=== PATIENT | female | born 1950 | race Caucasian/White ===

== ENCOUNTER → 2020-01-24 14:49 | Outpatient (BNVA) | payer OTHER, SELFPAY | PROVIDERS: Visit Provider Nurse Practitioner Family | DX: R09.81 Nasal congestion (principal); R53.81 Other malaise; R53.83 Other fatigue; Z20.828 Contact with and (suspected) exposure to other viral communicable diseases | CPT/HCPCS: 87635 ==

== ENCOUNTER 2020-01-29 11:37 | Emergency (ER) | payer OTHER, SELFPAY ==
[2020-01-29 11:46] VITALS: BP 182/109; PULSE 84; RESP 17; TEMP 36.4; O2SAT 98; BMI 34.1
--- NOTE | 2020-01-29 11:55 | ED_ITS ---
HPI - Nausea/Vomiting/Diarrhea General: Chief complaint: Nausea/Vomiting/Diarrhea Stated complaint: COVID+ /NAUSEA Time Seen by Provider: 01/29/20 11:42 Source: patient Mode of arrival: ambulatory Limitations: no limitations History of Present Illness: HPI Narrative: Emani is a very nice 69-year-old female who comes in complaining of nausea, lightheadedness and difficulty sleepi ng. Patient began Friday with symptoms of upper respiratory infection and ultimately presented to her doctor on Friday. She was tested for COVID virus and was notified Friday that she was positive. Patient states that overall she feels okay and denies significant shortness of breath, cough, fever or fatigue. She states that she just has persistent nausea and because of this it is keeping her up so that she cannot sleep and also she is not eating or drinking as much and show she feels as though she could be dehydrated. She denies any syncope or near syncope type symptoms. She states the lightheadedness is mostly when she goes from a seated or laying to a standing position. She knows if she takes her time she will feel okay with standing. She otherwise denies any complaints or concerns. Associated nausea: Yes Associated symtoms: Reports dizziness (Lightheadedness) and nausea; Denies change in vision, chest pain, diaphoresis, dysuria, fatigue, headache(s), malaise, palpitations or syncope Review of Systems Const: Denies: fever(s), chills, body aches, fatigue, malaise or diaphoresis Eyes: Denies: change in vision, blurry vision, photophobia, eye discomfort, eye discharge or eye redness ENMT: Denies: throat pain, odynophagia, hoarseness, swelling of lips/tongue, ear or mastoid pain, ear discharge, change in hearing or nasal discharge Card: Denies: chest pain, palpitations, irregular heart rhythm, edema, lightheadedness, syncope, pre-syncope, dyspnea on exertion or orthopnea Resp: Denies: dyspnea, productive cough, non-productive cough, wheezing, hemoptysis or chest congestion GI: Reports: nausea; Denies: abdominal pain, vomiting, hematemesis, coffee ground emesis, heartburn, diarrhea, constipation, GI cramping, hematochezia or melena : Denies: flank pain, dysuria, urinary frequency, urinary urgency or hematuria Musc: Denies: neck pain, back pain, extremity pain, extremity swelling, joint pain, joint swelling, joint redness, joint warmth or joint stiffness Skin/Breast: Denies: rash, pruritus, erythema or skin tenderness Neuro: Reports: dizziness (Lightheadedness); Denies: headache(s), numbness in extremities, weakness in extremities, sensory changes, lack of coordination, difficulty walking, vertigo, confusion, Slurred speech present or seizure-like activity Cheikh/Lymph: Denies: easy bruising, easy bleeding, petechiae, purpura or enlarged lymph nodes All/Imm: Denies: urticaria, throat swelling, tongue swelling, facial swelling or acute wheezing PFSH ED PFSH: Medical History Asthma Hyperlipidemia Rheumatoid arthritis Physical Exam Const: COMMON NORMALS: no acute distress, patient oriented x3, no limitations, healthy appearing and well nourished GENERAL APPEARANCE: cooperative, well kempt and well developed HENMT: COMMON NORMALS: normocephalic, atraumatic, external ears normal, EAC's normal and Normal external nose present HEAD & SCALP: normal to inspection, normocephalic and atraumatic FACE & SINUS: normal facial exam and face symmetric NOSE: Normal external nose present and Normal nares present EXTERNAL EAR: Yes external ears normal EXTERNAL AUDITORY CANAL: EAC's normal MOUTH: Normal oral and palatal mucosa present, lip normal and tongue normal Eye: COMMON NORMALS: Equal, round and reactive pupils present and conjunctivae normal GENERAL EYE: appearance normal, both eyes and all related structures ALIGNMENT: Yes alignment normal PERIORBITAL: periorbital findings normal EYELID: eyelids normal CONJUNCTIVA: Yes conjunctivae normal SCLERA: sclerae normal PUPIL: Yes Equal, round and reactive pupils present Neck/C-Spine: COMMON NORMALS: full ROM, no lymphadenopathy, supple, no m eningeal signs and no JVD GENERAL: Yes normal visual inspection and Yes trachea midline Chest: COMMONS NORMALS: normal inspection of the chest and normal palpation of entire chest wall Resp: COMMON NORMALS: normal respiratory effort, No retractions, No use of accessory muscles and clear to auscultation bilaterally EFFORT & INSPECTION: Yes able to speak in complete sentences and Yes symmetric chest movement AUSCULTATION: clear to auscultation bilaterally, no crackles, no rales, no rhonchi and no wheezes Cardio: COMMON NORMALS: no JVD, regular rate, regular rhythm, S1 normal heart sound present and S2 normal heart sound present RATE: regular rate RHYTHM: regular rhythm HEART SOUNDS: S1 normal heart sound present, S2 normal heart sound present, no click, no gallops, no murmurs, no rubs and abnormal split S2 GI: COMMON NORMALS: Soft to palpation and No hepatosplenomegaly present PALPATION: Yes Soft to palpation, No Tenderness to palpation present (GI), No Guarding due to palpation present (GI), No Rigid due to palpation, Yes No hepatosplenomegaly present, No Hernia present, No Palpable mass present and No Pulsatile mass present : COMMON NORMALS: Yes no CVA tenderness BLADDER/KIDNEY EXAM: Yes no CVA tenderness EXTERNAL FEMALE EXAM: No Hernia present Back/Pelvis: COMMON NORMALS: no CVA tenderness, thoracic and lumbar spine normal to inspection, no thoracic nor lumbar tenderness and thoraco-lumbar ROM normal Extremity: COMMON NORMALS: normal to inspection, full ROM, capillary refill normal, no joint enlargement, no clubbing, cyanosis or edema and no calf tenderness Neuro: COMMON NORMALS: patient oriented x3, CN's II-XII intact bilaterally, moves all extremities, no focal motor deficits and no sensory deficits noted MENINGEAL SIGNS: Yes no meningeal signs SPEECH: speech normal Psych: COMMON NORMALS: mental status grossly normal, Normal thought process present, cooperative, normal affect, speech normal and activity/motor behavior normal APPEARANCE: Yes well kempt SPEECH: Yes normal speech THOUGHT PROCESS: Normal thought process present Skin: COMMON NORMALS: no rashes or lesions noted, turgor normal, no jaundice, no petechiae and no mottling GENERAL SKIN EXAM: no rashes or lesions noted and turgor normal Course Vital Signs: Vital signs: Vital Signs Temperature 97.6 F 01/29/20 11:46 Pulse Rate 84 01/29/20 11:46 Respiratory Rate 17 01/29/20 11:46 Blood Pressure 182/109 01/29/20 11:46 Pulse Oximetry 98 01/29/20 11:46 MDM - Nausea/Vomiting/Diarrhea MDM Narrative: Medical decision making narrative: Emani is a nice 69-year-old female who comes in complaining of lightheadedness, nausea and difficulty sleeping. Patient is COVID-19 positive per her report. Her vital signs are normal except for mild hypertension and her exam is stable. The patient is declining any lab work, IV fluids or chest x-ray. I believe she is stable for discharge but I will give her Zofran for her nausea as she is requested. She will take this during the day but will try Phenergan at night as needed for sleep. She also wants to try melatonin after I have advised for her to try this. She understands that she is welcome to return should she change her mind and she want work-up performed but at this time she states she feels good she just wants something for her symptoms and would like to be discharged. Patient does take a quarter of a milligram of prednisone daily, 0.25 mg. I did review this with internal medicine and they state that the patient can stop this without having to taper. The patient states that she has taken herself off of this before turkey and never had any symptoms. She takes this for her RA and been told by her bread packer in the past that is insignificant but it makes her feel better she can take it. Patient states that she can go up to 2 weeks at a time without taking it but then she starts to have pain in her joints from her RA. I have advised her to stop this until she has completely recovered from this covert infection and she states she will do so. Discharge Plan Discharge Patient Disposition: Home Clinical Impression: Nausea, COVID-19 virus infection Condition: Stable Prescriptions: New Zofran 4 mg tablet 4 mg PO Q6H PRN (Reason: nausea and vomiting) Qty: 20 RF: 0 promethazine 25 mg tablet 25 mg PO Q4H PRN (Reason: nausea and vomiting) Qty: 20 RF: 0 Discharge Orders: Discharge Order (Routine); Ordered 01/29/20 Ordered By: Essie Almaguer Referrals: Magdy Cruz MD [Physician] - 1-3 days Discharge Diet: Advance as tolerated Discharge Activity: Resume usual activity Patient Instructions: Acute Nausea and Vomiting (ED), Viral Syndrome (ED) Activity Restrictions/Additional Instructions: Please return to the ER immediately for any of the signs or symptoms listed on your discharge instruction sheets, worsening/changing of your symptoms, you are not getting better as quickly as expected, or for ANY other cause or concerns. Take the Zofran during the day as needed for nausea and vomiting. If you are nauseated at night take the Phenergan 1 tablet and if necessary a second tablet. You may also take melatonin at night to help you sleep. Stop your prednisone until your symptoms have resolved and discussed with your primary doctor or your bread packer restarting this. Return to the ER for shortness of breath, increased weakness, vomiting, or for any other cause for concern. Coding Level of Care Code ED On Site Services Specialist for Adriana Nguyễn
[2020-01-29] MEDS: ondansetron 4 MG Tablet PO (12:32)
== END 2020-01-29 12:38 | disposition home or self-care (01) ==
PROVIDERS: Emergency Provider Emergency Medicine
DX: U07.1 COVID-19 (principal); R11.0 Nausea; E78.5 Hyperlipidemia, unspecified
CPT/HCPCS: 12345; 99281; 99283; Q0162

== ENCOUNTER 2021-01-06 00:33 | Emergency (ER) | payer MEDICARE, SELFPAY ==
--- NOTE | 2021-01-06 01:09 | XRR_ITS ---
PROCEDURE INFORMATION: Exam: XR Chest Exam date and time: 01/06/2021 1:09 AM Age: 70 years old Clinical indication: Shortness of breath; Patient HX: SOB. History of asthma. TECHNIQUE: Imaging protocol: XR of the chest. Views: 1 view. Total images: 1 COMPARISON: No relevant prior studies available. FINDINGS: Lungs: Trace atelectasis or scar noted in the right lung base. Pleural spaces: Unremarkable. No pleural effusion. No pneumothorax. Heart/Mediastinum: Low lung volumes are present, accentuating cardiac size and pulmonary markings. Vasculature: Atherosclerosis is evident. Bones/joints: Unremarkable. XR/XR chest 1V portable [id number] IMPRESSION: 1. Low lung volumes are present, accentuating cardiac size and pulmonary markings. 2. Trace atelectasis or scar noted in the right lung base.
--- NOTE | 2021-01-06 01:09 | ECG_ITS ---
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: : 1950 Requested By: Fahad Ruano Order Number: [id number] Reading MD: IRVING FLEMING Measurements Intervals [place] Rate: 62 P: 29 NM: 167 QRS: 21 QRSD: 90 T: 23 QT: 399 QTc: 407 Interpretive Statements SINUS RHYTHM MINIMAL VOLTAGE CRITERIA FOR LVH, CONSIDER NORMAL VARIANT [MEETS CRITERIA IN ONE OF: R(aVL), S(V1), R(V5), R(V5/V6)+S(V1)] WARNING: DATA QUALITY MAY AFFECT INTERPRETATION No previous ECG available for comparison Electronically Signed On 01-06-2021 20:28:25 CDT by IRVING FLEMING [id number]
[2021-01-06 01:31] VITALS: BP 203/97; PULSE 78; RESP 18; TEMP 36.8; O2SAT 99; BMI 33.1
[2021-01-06 05:12] LABS: Basophils % 0.5 %; Eosinophils # 0.1 10^3/uL (0.0-0.8); Eosinophils % 2.3 %; Hematocrit 40.1 % (37.0-47.0); Hemoglobin 12.8 g/dL (11.5-15.3); Lymphocytes # 1.2 10^3/uL (0.8-4.8); Lymphocytes % 20.9 %; Mean Corpuscular HGB Conc 31.9 g/dL (30.0-36.0); Mean Corpuscular Hemoglobin 30.5 pg (28.0-34.0); Mean Corpuscular Volume 95.7 fL (81-99); Mean Platelet Volume 10.2 fL (7.4-10.4); Monocytes # 0.8 10^3/uL (0.2-0.9); Monocytes % 14.9 %; Neutrophils # 3.44 10^3/uL (1.8-7.7); Nucleated Red Blood Cells % 0 %; Platelet Count 266 10^3/cmm (130-400); Red Blood Count 4.19 10^6/uL (4.1-5.3); Red Cell Distribution Width 12.8 % (12.1-15.1); White Blood Count 5.6 10^3/uL (4.0-10.0)
[2021-01-06 05:32] LABS: Troponin(5th) Baseline 14 ng/L (0-10)
[2021-01-06 05:35] VITALS: BP 160/94; PULSE 61; O2SAT 96
[2021-01-06 05:41] LABS: Alanine Aminotransferase 17 U/L (0-33); Albumin Level 4.2 g/dL (3.5-5.2); Alkaline Phosphatase 47 IU/L (35-105); Anion Gap 13.1 (5-19); Aspartate Amino Transferase 18 U/L (0-32); Blood Urea Nitrogen 15 mg/dL (8-23); Calcium 9.2 mg/dL (8.5-10.5); Carbon Dioxide 29 mmol/L (22-29); Chloride 102 mmol/L (98-107); Globulin 2.1 g/dL (1.3-4.6); Glomerular Filtration Rate 122.3 mL/min (90-130); Glucose 76 mg/dL (65-115); NT Pro B Type Natriuretic Pept 62 pg/mL (0-125); Osmolality Calculated 290 mOsm/kg (285-295); Potassium 4.1 mmol/L (3.5-5.1); Sodium 140 mmol/L (136-145); Total Bilirubin 0.4 mg/dL (0.15-1.2); Total Protein 6.3 g/dL (6.6-8.7)
--- NOTE | 2021-01-06 05:50 | ED_ITS ---
HPI - General Adult General: Chief complaint: General Medical Stated complaint: sob/has asthma Time Seen by Provider: 01/06/21 05:48 History of Present Illness: HPI narrative: 70-year-old female presents emergency room complaining of reflux with a history of asthma. She states she has not been having improvement with her usual rescue medications. She did test positive for Covid in January 2020. This is evidently been going on for some weeks and seems to be worsening. She has tried several different medications although really she continues to take Prilosec daily for her heartburn. Onset (ago): day(s) Severity: moderate Relieving factors: none Exacerbating factors: none Associated symptoms: Deny chest pain, confusion, cough, diaphoresis, decreased appetite, dyspnea, fevers/chills, headache(s), malaise, nausea, rash, palpitations, seizures, short of breath, syncope, vomiting or weakness Treatments prior to arrival: other (Inhaled beta agonists) Review of Systems Const: Denies: malaise or diaphoresis ENMT: Reports: throat pain; Denies: ear or mastoid pain, nasal discharge or nasal congestion Card: Denies: chest pain, palpitations or syncope Resp: Denies: dyspnea GI: Reports: heartburn; Denies: nausea or vomiting : Denies: flank pain, difficulty voiding, dysuria, urinary frequency or urinary urgency Skin/Breast: Denies: rash Neuro: Denies: headache(s) or confusion PFS ED PFSH: Medical History (Updated 01/07/21 @ 18:15 by Holden Barker DO) Asthma Hyperlipidemia Rheumatoid arthritis Physical Exam Const: COMMON NORMALS: no acute distress GENERAL APPEARANCE: cooperative and comfortable ORIENTATION/CONSCIOUSNESS: Yes awake, Yes oriented to person, Yes oriented to place and Yes oriented to time HENMT: COMMON NORMALS: normocephalic, atraumatic and hearing grossly normal bilaterally HEAD & SCALP: normocephalic and atraumatic Neck/C-Spine: COMMON NORMALS: no JVD Resp: COMMON NORMALS: normal respiratory effort, No retractions, No use of accessory muscles and clear to auscultation bilaterally AUSCULTATION: clear to auscultation bilaterally Cardio: COMMON NORMALS: no JVD, regular rate, regular rhythm and No murmurs present (Cardio) RATE: regular rate RHYTHM: regular rhythm GI: COMMON NORMALS: Soft to palpation and No hepatosplenomegaly present AUSCULTATION: Yes normoactive bowel sounds PALPATION: Yes Soft to palpation, No Tenderness to palpation present (GI), No Guarding due to palpation present (GI) and Yes No hepatosplenomegaly present Extremity: COMMON NORMALS: normal to inspection, capillary refill normal, no clubbing, cyanosis or edema, no calf tenderness and no pedal edema Neuro: SENSORIUM/ORIENTATION: Yes oriented to person, Yes oriented to place and Yes oriented to time Skin: COMMON NORMALS: no rashes or lesions noted GENERAL SKIN EXAM: no rashes or lesions noted Course Vital Signs: Vital signs: Vital Signs Temperature 98.2 F 01/06/21 01:31 Pulse Rate 98 01/06/21 10:37 Respiratory Rate 18 01/06/21 10:37 Blood Pressure 189/98 01/06/21 10:37 Pulse Oximetry 99 01/06/21 10:37 MDM - General Adult MDM Narrative: Medical decision making narrative: Reviewed labs with the patient discharged home increase omeprazole to 40 twice daily add Carafate as needed also set her up for a Lexiscan sestamibi stress test. Recommend follow- up with her PCP for an EGD. Lab Data: Labs: Lab Results 01/06/21 01/06/21 01/06/21 Range/Units 04:45 04:45 04:45 WBC 5.6 (4.0-10.0) 10^3/ uL RBC 4.19 (4.1-5.3) 10^6/u L Hgb 12.8 (11.5-15.3) g/dL Hct 40.1 (37.0-47.0) % MCV 95.7 (81-99) fL MCH 30.5 (28.0-34.0) pg MCHC 31.9 (30.0-36.0) g/dL RDW 12.8 (12.1-15.1) % Plt Count 266 (130-400) 10^3/c mm MPV 10.2 (7.4-10.4) fL Neut % (Auto) 61.0 % Lymph % (Auto) 20.9 % [place] % (Auto) 14.9 % Eos % (Auto) 2.3 % Baso % (Auto) 0.5 % Neut # (Auto) 3.44 (1.8-7.7) 10^3/u L Lymph # (Auto) 1.2 (0.8-4.8) 10^3/u L [place] # (Auto) 0.8 (0.2-0.9) 10^3/u L Eos # (Auto) 0.1 (0.0-0.8) 10^3/u L Baso # (Auto) 0.0 (0.0-0.1) 10^3/u L Nucleated RBC % (a uto) 0 % Nucleated RBCs # 0.0 /100WBC Sodium 140 (136-145) mmol/L Potassium 4.1 (3.5-5.1) mmol/L Chloride 102 (98-107) mmol/L Carbon Dioxide 29 (22-29) mmol/L Anion Gap 13.1 (5-19) BUN 15 (8-23) mg/dL Creatinine 0.5 (0.5-0.9) mg/dL GFR Calculation 122.3 (90-130) mL/min Glucose 76 (65-115) mg/dL Calculated Osmolal ity 290 (285-295) mOsm/k g Calcium 9.2 (8.5-10.5) mg/dL Total Bilirubin 0.4 (0.15-1.2) mg/dL AST 18 (0-32) U/L ALT 17 (0-33) U/L Alkaline Phosphata se 47 (35-105) IU/L Troponin T Gen 5 n g/L (0-10) ng/L Troponin T Baselin e 14 H (0-10) ng/L NT-Pro-B Natriuret Pep 62 (0-125) pg/mL Total Protein 6.3 L (6.6-8.7) g/dL Albumin 4.2 (3.5-5.2) g/dL Globulin 2.1 (1.3-4.6) g/dL SARS-CoV-2 Ag (Rap id) (Negative) 01/06/21 01/06/21 Range/Units 04:45 08:08 WBC (4.0-10.0) 10^3/ uL RBC (4.1-5.3) 10^6/u L Hgb (11.5-15.3) g/dL Hct (37.0-47.0) % MCV (81-99) fL MCH (28.0-34.0) pg MCHC (30.0-36.0) g/dL RDW (12.1-15.1) % Plt Count (130-400) 10^3/c mm MPV (7.4-10.4) fL Neut % (Auto) % Lymph % (Auto) % [place] % (Auto) % Eos % (Auto) % Baso % (Auto) % Neut # (Auto) (1.8-7.7) 10^3/u L Lymph # (Auto) (0.8-4.8) 10^3/u L [place] # (Auto) (0.2-0.9) 10^3/u L Eos # (Auto) (0.0-0.8) 10^3/u L Baso # (Auto) (0.0-0.1) 10^3/u L Nucleated RBC % (a uto) % Nucleated RBCs # /100WBC Sodium (136-145) mmol/L Potassium (3.5-5.1) mmol/L Chloride (98-107) mmol/L Carbon Dioxide (22-29) mmol/L Anion Gap (5-19) BUN (8-23) mg/dL Creatinine (0.5-0.9) mg/dL GFR Calculation (90-130) mL/min Glucose (65-115) mg/dL Calculated Osmolal ity (285-295) mOsm/k g Calcium (8.5-10.5) mg/dL Total Bilirubin (0.15-1.2) mg/dL AST (0-32) U/L ALT (0-33) U/L Alkaline Phosphata se (35-105) IU/L Troponin T Gen 5 n g/L 14 H (0-10) ng/L Troponin T Baselin e (0-10) ng/L NT-Pro-B Natriuret Pep (0-125) pg/mL Total Protein (6.6-8.7) g/dL Albumin (3.5-5.2) g/dL Globulin (1.3-4.6) g/dL SARS-CoV-2 Ag (Rap id) Negative (Negative) Discharge Plan Discharge Patient Disposition: Home Clinical Impression: Esophagitis, reflux Condition: Stable Prescriptions: New omeprazole 40 mg capsule,delayed release(DR/EC) 40 mg PO BID Qty: 60 RF: 0 Carafate 1 gram tablet 1 g PO Q6H PRN (Reason: heartburn) 28 Days Qty: 112 RF: 0 No Action Zofran 4 mg tablet 4 mg PO Q6H PRN (Reason: nausea and vomiting) Qty: 20 RF: 0 promethazine 25 mg tablet 25 mg PO Q4H PRN (Reason: nausea and vomiting) Qty: 20 RF: 0 Discharge Orders: Discharge ED (Routine); Ordered 01/06/21 Ordered By: Holden Barker Discharge Diet: Usual diet Discharge Activity: Resume usual activity Patient Instructions: Opioid Safety Activity Restrictions/Additional Instructions: Case management will call to set you up for a Lexiscan sestamibi stress test. Coding Level of Care Code ED Director Of Estate for Adriana Fwd Exam Comprehensive
[2021-01-06 06:18] LABS: SARS Covid-2 Antigen Negative (Negative)
[2021-01-06 06:23] VITALS: BP 153/87; PULSE 70; RESP 18; O2SAT 96
--- NOTE | 2021-01-06 07:09 | ECG_ITS ---
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
[2021-01-06 07:21] VITALS: BP 169/84; PULSE 72; RESP 16; O2SAT 97
[2021-01-06 08:38] LABS: Troponin T (5th) Once 14 ng/L (0-10)
[2021-01-06 10:21] VITALS: BP 189/98; PULSE 98; RESP 18; O2SAT 99
[2021-01-06 10:37] VITALS: BP 189/98; PULSE 98; RESP 18; O2SAT 99
--- NOTE | 2021-01-09 08:54 | DCPLANNER ---
Addendum entered by Radha Gasca 01/11/21 12:17: Patient called caseworker protective services back and stated that she did want to have the stress test ordered. customer support manager faxed signed order to centralized scheduling. Original Note: customer support manager had message to schedule an outpatient stress test for patient. customer support manager called phone number , to confirm if patient wanted to have the stress test, and to confirm who patient sees for primary care. customer support manager unable to speak with patient at this time, a voicemail was left for patient to return pillowcase cleaner phone to discuss the stress test.
== END 2021-01-06 10:40 | disposition home or self-care (01) ==
PROVIDERS: Nurse Practitioner Family; Emergency Provider Family Medicine
DX: K21.00 Gastro-esophageal reflux disease with esophagitis, without bleeding (principal); J45.909 Unspecified asthma, uncomplicated; E78.5 Hyperlipidemia, unspecified; Z86.16 Personal history of COVID-19
CPT/HCPCS: 36415; 71045; 80053; 83880; 84484; 85025; 87426; 93005; 99284